=== PATIENT | male | born 1970 | race Caucasian/White ===

== ENCOUNTER 2017-08-03 10:23 | Emergency (ER) | payer SELFPAY ==
[~2017-08-03] VITALS: Ht 203.2 cm; Wt 99.7 kg
[2017-08-03 10:24] VITALS: BP 167/106
== END 2017-08-03 11:35 | disposition left against medical advice (07) ==
LOC: ED 11:28
DX: M54.9 Dorsalgia, unspecified (principal); Z53.21 Procedure and treatment not carried out due to patient leaving prior to being seen by health care provider